=== PATIENT | female | born 1930 | race African-American/Black ===

== ENCOUNTER 2016-08-15 09:18 | Emergency (ER) | payer MEDICAID, MEDICARE ==
[2016-08-15 09:50] LABS: #Basophils 0.1 thou/uL (0.0-0.2); #Eosinphils 0.1 thou/uL (0.0-0.7); #Monocytes 0.3 thou/uL (0.11-0.59); #Neutrophils 2.8 thou/uL (1.40-6.50); %Basophils 1.3 % (0.0-1.0); %Eosinophils 2.6 % (0.0-10.0); %Lymphocytes 37.8 % (21.0-51.0); %Monocytes 6.4 % (0.0-10.0); %Neutrophils 51.9 % (42.0-75.0); Mean Corpuscular HGB CONC 31.3 g/dL (32.0-36.0); Mean Corpuscular Hemoglobin 29.7 pg (27.0-31.0); Mean Corpuscular Volume 94.7 fl (81.0-99.0); Mean Platelet Volume 7.1 fL (7.4-10.4); Platelet Count 171 thou/uL (130-400); RBC Distribution Width 13.1 % (11.5-14.5); Red Blood Cell (RBC) Count 4.38 mill/uL (4.20-5.40); White Blood Cell (WBC) Count 5.3 thou/uL (4.8-10.8)
[2016-08-15 10:03] LABS: ALT (SGPT) 11 U/L (0-55); AST (SGOT) 14 U/L (5-34); Albumin 4.3 g/dL (3.4-4.8); Alkaline Phosphatase 89 U/L (40-150); Anion Gap 20 mmol/L (10-20); BUN (Urea Nitrogen) 16 mg/dL (9.8-20.1); Bilirubin, Total 0.3 mg/dL (0.2-1.2); Calc. Creatinine Clearance 0 mL/min (70-130); Calcium 10.1 mg/dL (7.8-10.44); Carbon Dioxide 27 mmol/L (23-31); Chloride 101 mmol/L (98-107); Estimated GFR-MDRD 78; Globulin 2.9 g/dL (2.4-3.5); Glucose 126 mg/dL (83-110); Potassium 5.4 mmol/L (3.5-5.1); Protein, Total 7.2 g/dL (5.8-8.1); Sodium 143 mmol/L (136-145)
[2016-08-15 10:07] LABS: CKMB 1.8 ng/mL (0-6.6); Troponin I Less than 0.010 ng/mL (< 0.028)
--- NOTE | 2016-08-15 10:09 | CT ---
HEAD CT NONCONTRAST: Comparison: 04-19-13 Indication: Altered mental status. FINDINGS: Moderate to severe chronic microvascular ischemic disease with superimposed right posterior cerebral hemispheric encephalomalacia again demonstrated without intracranial hemorrhage, mass effect or mid line shift. Persistent ex vacuo dilatation of ventricular system. There is mild mucosal thickening of the paranasal sinuses. IMPRESSION: 1. No acute intracranial hemorrhage or mass effect. 2. Moderate to severe chronic microvascular ischemic disease and superimposed encephalomalacia. POS: YARYH
--- NOTE | 2016-08-15 10:11 | RAD ---
AP VIEW OF CHEST: Date: 08/15/16 HISTORY: Altered mental status. FINDINGS: Comparison made to previous exam from 01/07/16. AP view of chest demonstrates sternotomy wires seen. The lungs are well aerated. No evidence of acti ve intrathoracic disease seen. No evidence of effusions, pneumonia, or pneumothorax seen. IMPRESSION: Unremarkable AP view of chest. POS: H
== END 2016-08-15 12:35 | disposition short-term general hospital (02) ==
LOC: MADERS 09:18
DX: R41.82 Altered mental status, unspecified (principal); K21.9 Gastro-esophageal reflux disease without esophagitis; E78.5 Hyperlipidemia, unspecified; I10 Essential (primary) hypertension; F32.9 Major depressive disorder, single episode, unspecified; Z86.73 Personal history of transient ischemic attack (TIA), and cerebral infarction without residual deficits; Z79.84 Long term (current) use of oral hypoglycemic drugs; Z79.899 Other long term (current) drug therapy
CPT/HCPCS: 70450; 71010; 80053; 82553; 84484; 85025; 93005